=== PATIENT | female | born 1995 | race Caucasian/White ===

== ENCOUNTER 2017-03-22 15:22 | Emergency (ER) | payer SELFPAY ==
[~2017-03-22] VITALS: Ht 160 cm; Wt 77.3 kg
[~2017-03-22 15:22] MED LIST: Z.0.NO CURRENT MEDS
[2017-03-22 15:24] VITALS: BP 133/78; PULSE 85; RESP 16; TEMP 98.7; O2SAT 100
[2017-03-22] MEDS ORDERED: CIPR-9 PO (15:46)
--- NOTE | 2017-03-22 15:59 | PD ---
HPI Chief Complaint: Complaint Time Seen by Provider: 15:33 Travel History International Travel<30 days: No Contact w/Intl Traveler<30days: No Traveled to known affect area: No History of Present Illness HPI Is a 21-year-old woman who presents to the emergency department complaining of fever, dizziness, dysuria, and lightheadedness. She reports that on Saturday, 4 days ago she started getting fever, bloody urine, pelvic pressure. She went to her primary care doctor's office on Saturday where she had a urine that reportedly showed bloody urine. No change in BM. Some nausea, no vomiting. No URI or other symptoms. History Past Medical History Narrative Medical None Influenza Vaccination: No LMP: NOW : 0 Para: 0 Past Surgical History Surgical History: No Previous Surgery Social History Alcohol Use: No Tobacco Use: No Allergies-Medications (Allergen,Severity, Reaction): Coded Allergies: No Known Allergies (Verified , 03/22/17) Reported Meds & Prescriptions Reported Meds & Active Scripts Active Reported Cipro (Ciprofloxacin HCl) 500 Mg Tab 500 Mg PO BID Review of Systems Except as stated in HPI: all other systems reviewed are Neg Physical Exam Narrative GENERAL: Well-appearing 20 year-old woman, no acute distress. SKIN: Focused skin assessment warm/dry. HEAD: Atraumatic. Normocephalic. EYES: Pupils equal and round. No scleral icterus. No injection or drainage. ENT: No nasal bleeding or discharge. Mucous membranes pink and moist. NECK: Trachea midline. No JVD. CARDIOVASCULAR: Regular rate and rhythm. No murmur appreciated. RESPIRATORY: No accessory muscle use. Clear to auscultation. Breath sounds equal bilaterally. GASTROINTESTINAL: Abdomen soft, non-tender, nondistended. Hepatic and splenic margins not palpable. Minimal right sided CVA tenderness. MUSCULOSKELETAL: No obvious deformities. Data Data Last Documented VS Vital Signs Date Time Temp Pulse Resp B/P (MAP) Pulse Ox O2 Delivery O2 Flow Rate FiO2 03/22/17 15:24 98.7 85 16 133/78 (96) 100 Orders Orders Complete Blood Count With Diff (03/22/17 15:52) Comprehensive Metabolic Panel (03/22/17 15:52) Urinalysis - C+S If Indicated (03/22/17 15:52) Cath For Specimen (03/22/17 15:52) Iv Access Insert/Monitor (03/22/17 15:52) Ns (Bolus) Inj (03/22/17 16:00) MDM Medical Decision Making Medical Screen Exam Complete: Yes Emergency Medical Condition: Yes Differential Diagnosis UTI, pyelonephritis, PID, other Narrative Course Medical decision making 20 year-old woman presents emergency Department with reported UTI, not responding antibiotics, now with fever, lightheadedness, wooziness. She reports fever up to 102. She looks completely well. She has a lot of somatic symptoms. We'll check Urine, blood work, repeat evaluation. Patient will be sent up to Dr. Smith to follow-up on the results of diagnostic testing. Amilcar Vargas MD Mar 22, 2017 15:59
[2017-03-22] MEDS ORDERED: SODIUM CHLOR 0.9% 1000 ML INJ 1,000 ML IV SCH (16:00)
[2017-03-22 16:13] LABS: AUTOMATED NEUTROPHIL # 4.5 TH/MM3 (1.8-7.7); BASOPHIL % 0.6 % (0.0-2.0); EOSINOPHIL # 0.1 TH/MM3 (0-0.4); EOSINOPHIL % 1.8 % (0.0-4.0); HEMATOCRIT 36.4 % (35.0-46.0); HEMO FLAGS DIFF FINAL; LYMPH % 25.3 % (9.0-44.0); LYMPHOCYTE # 1.7 TH/MM3 (1.0-4.8); MEAN CELL VOLUME 84.3 FL (80.0-100.0); MEAN CORPUSCULAR HEMOGLOBIN 27.9 PG (27.0-34.0); MONO % 7.6 % (0.0-8.0); NEUT % 64.7 % (16.0-70.0); PLATELET COUNT 214 TH/MM3 (150-450); RED BLOOD COUNT 4.32 MIL/MM3 (4.00-5.30); RED CELL DISTRIBUTION WIDTH 13.6 % (11.6-17.2); WHITE BLOOD COUNT 6.8 TH/MM3 (4.0-11.0)
[2017-03-22 16:18] LABS: BLOOD, URINE SMALL (NEG); GLUCOSE,URINE NEG (NEG); KETONE, URINE NEG (NEG); NITRITE,URINE NEG (NEG)
[2017-03-22 16:23] LABS: CHLORIDE 105 MEQ/L (98-107); POTASSIUM 3.5 MEQ/L (3.5-5.1); SODIUM (NA) 140 MEQ/L (136-145)
[2017-03-22 16:26] LABS: METHOD OF COLLECTION CATH; RBC, URINE 0-3 /hpf (0-3); URINE COLOR STRAW (YELLW/STRAW)
[2017-03-22 16:27] LABS: COMMENT (UR) CATH-CULT NOT IND; CULTURE IF INDICATED CATH CULTURE NOT IND; SQUAMOUS EPITHELIAL CELL URINE 0-5 /hpf (0-5)
[2017-03-22 16:28] LABS: ANION GAP 8 MEQ/L (5-15); BLOOD UREA NITROGEN 13 MG/DL (7-18)
[2017-03-22 16:31] LABS: ALT (GPT) 16 U/L (10-53); AST (GOT) 13 U/L (15-37); GLOMERULAR FILTRATION RATE 90 ML/MIN (>89)
[2017-03-22 16:33] LABS: TOTAL BILIRUBIN ADULT 0.4 MG/DL (0.2-1.0)
[2017-03-22 16:34] LABS: ALKALINE PHOSPHATASE 43 U/L (45-117)
--- NOTE | 2017-03-22 16:36 | PD ---
Physical Exam Date Seen by Provider: Mar 22, 2017 Time Seen by Provider: 16:31 Narrative This 21-year-old female has been sick for several days. On Saturday she developed a fever of 103. She went to see Dr. Navarro. She has a history of frequent urinary tract infections. She was given an injection of antibiotic. She was sent to the lab and she was told that her white count was quite elevated and she went back to the office the next day and was given a second injection of antibiotics. She is also been on Cipro. She is on control pills. She is currently having her period. She says that the last couple of days he's been feeling weak and dizzy. She has felt short of breath at times. She has not had any cough or congestion. She has some migratory abdominal pain. Examination her temp is 98.7. Her pulse ox is 100 and a pulse rate is 85.GENERAL: [-] SKIN: Focused skin assessment warm/dry. HEAD: Atraumatic. Normocephalic. EYES: Pupils equal and round. No scleral icterus. No injection or drainage. ENT: No nasal bleeding or discharge. Mucous membranes pink and moist. NECK: Trachea midline. No JVD. CARDIOVASCULAR: Regular rate and rhythm. No murmur appreciated. RESPIRATORY: No accessory muscle use. Clear to auscultation. Breath sounds equal bilaterally. GASTROINTESTINAL: Abdomen soft, non-tender, nondistended. Hepatic and splenic margins not palpable. MUSCULOSKELETAL: No obvious deformities. No clubbing. No cyanosis. No edema. NEUROLOGICAL: Awake and alert. No obvious cranial nerve deficits. Motor grossly within normal limits. Normal speech. PSYCHIATRIC: Appropriate mood and affect; insight and judgment normal. Data Data Last Documented VS Vital Signs Date Time Temp Pulse Resp B/P (MAP) Pulse Ox O2 Delivery O2 Flow Rate FiO2 03/22/17 15:24 98.7 85 16 133/78 (96) 100 Orders Orders Complete Blood Count With Diff (03/22/17 15:52) Comprehensive Metabolic Panel (03/22/17 15:52) Urinalysis - C+S If Indicated (03/22/17 15:52) Cath For Specimen (03/22/17 15:52) Iv Access Insert/Monitor (03/22/17 15:52) Sodium Chlor 0.9% 1000 Ml Inj (Ns 1000 M (03/22/17 16:00) Labs Laboratory Tests Test 03/22/17 16:00 03/22/17 16:05 White Blood Count 6.8 TH/MM3 Red Blood Count 4.32 MIL/MM3 Hemoglobin 12.0 GM/DL Hematocrit 36.4 % Mean Corpuscular Volume 84.3 FL Mean Corpuscular Hemoglobin 27.9 PG Mean Corpuscular Hemoglobin Concent 33.0 % Red Cell Distribution Width 13.6 % Platelet Count 214 TH/MM3 Mean Platelet Volume 8.0 FL Neutrophils (%) (Auto) 64.7 % Lymphocytes (%) (Auto) 25.3 % Monocytes (%) (Auto) 7.6 % Eosinophils (%) (Auto) 1.8 % Basophils (%) (Auto) 0.6 % Neutrophils # (Auto) 4.5 TH/MM3 Lymphocytes # (Auto) 1.7 TH/MM3 Monocytes # (Auto) 0.5 TH/MM3 Eosinophils # (Auto) 0.1 TH/MM3 Basophils # (Auto) 0.0 TH/MM3 CBC Comment DIFF FINAL Differential Comment Blood Urea Nitrogen 13 MG/DL Creatinine 0.79 MG/DL Random Glucose 94 MG/DL Total Protein 8.0 GM/DL Albumin 3.2 GM/DL Calcium Level 9.3 MG/DL Alkaline Phosphatase 43 U/L Aspartate Amino Transf (AST/SGOT) 13 U/L Alanine Aminotransferase (ALT/SGPT) 16 U/L Total Bilirubin 0.4 MG/DL Sodium Level 140 MEQ/L Potassium Level 3.5 MEQ/L Chloride Level 105 MEQ/L Carbon Dioxide Level 27.0 MEQ/L Anion Gap 8 MEQ/L Estimat Glomerular Filtration Rate 90 ML/MIN Urine Collection Type CATH Urine Color STRAW Urine Turbidity CLEAR Urine pH 6.0 Urine Specific [place] 1.003 Urine Protein NEG mg/dL Urine Glucose (UA) NEG mg/dL Urine Ketones NEG mg/dL Urine Occult Blood SMALL Urine Nitrite NEG Urine Bilirubin NEG Urine Leukocyte Esterase NEG Urine RBC 0-3 /hpf Urine Squamous Epithelial Cells 0-5 /hpf Microscopic Urinalysis Comment CATH-CULT NOT IND Urine Collection Time 16"05 [facility] Medical Record Reviewed: No Supervised Visit with DAJA: No Differential Diagnosis Differential includes UTI, adverse medication reaction Narrative Course White count is normal. Urinalysis does not show any evidence of infection at this time. I suspect her symptoms may represent adverse effect of ciprofloxacin. I recommended that she stop the Cipro. She is stable for discharge Diagnosis Primary Impression: Adverse drug reaction Qualified Codes: T88.7XXA - Unspecified adverse effect of drug or medicament, initial encounter Disposition: 01 DISCHARGE HOME Condition: Stable Marty Faith MD Mar 22, 2017 16:36
[2017-03-22 16:51] VITALS: BP 128/80
== END 2017-03-22 16:55 | disposition home or self-care (01) ==
LOC: PHED 15:22
DX: T88.7XXA Unspecified adverse effect of drug or medicament, initial encounter (principal); R50.9 Fever, unspecified; R42 Dizziness and giddiness; R30.0 Dysuria
CPT/HCPCS: 80053; 81001; 85025; 96360; 99283; J7030; P9612